=== PATIENT | female | born 1970 | race Hispanic/Latino ===

== ENCOUNTER → 2019-12-21 | Outpatient (CLI) | payer BC | END | disposition home or self-care (01) | LOC: RAH 08:47 | PROVIDERS: ATTEND Internal Medicine | DX: K76.0 Fatty (change of) liver, not elsewhere classified (principal); R16.0 Hepatomegaly, not elsewhere classified | CPT/HCPCS: 76700 ==

== ENCOUNTER 2023-03-24 09:13 | Observation (INO) | payer BC ==
[~2023-03-24] VITALS: Ht 160 cm; Wt 95.3 kg
[2023-03-24 09:34] LABS: BASOPHILS # (AUTO) 0.03 K/uL (0.00-0.20); BASOPHILS % (AUTO) 0.5 % (0.0-5.0); EOSINOPHILS # (AUTO) 0.13 K/uL (0.00-0.70); HEMATOCRIT 40.6 % (36-48); IMMATURE GRANULOCYTE ABSOLUTE 0.01 K/uL (0-1); LYMPHOCYTES % (AUTO) 31.1 % (21.0-51.0); MEAN CORPUSCULAR HEMOGLOBIN 31.7 pg (27.0-33.0); MEAN CORPUSCULAR HGB CONC 34.2 g/dL (32.0-36.0); MEAN CORPUSCULAR VOLUME 92.5 fL (79-99); MONOCYTES # (AUTO) 0.4 K/uL (0.1-1.0); MONOCYTES % (AUTO) 5.9 % (3.0-13.0); NEUTROPHILS # (AUTO) 3.9 K/uL (1.8-7.7); NEUTROPHILS % (AUTO) 60.3 % (40.0-77.0); PLATELET COUNT (AUTO) 270 K/uL (130-400); RED BLOOD CELL COUNT(AUTO) 4.39 MIL/uL (4.00-5.50); RED CELL DISTRIBUTION WIDTH 12.2 % (11.0-15.5); WHITE BLOOD COUNT (AUTO) 6.5 K/uL (4.8-10.8)
[2023-03-24 09:43] LABS: CREATININE 0.7 mg/dL (0.5-1.5); POTASSIUM 3.8 mmol/L (3.5-5.1)
[2023-03-24 09:47] LABS: ALBUMIN 3.7 g/dL (3.5-5.0); BILIRUBIN,TOTAL 0.5 mg/dL (0.2-1.0); MAGNESIUM 2.1 mg/dL (1.80-2.40); TOTAL PROTEIN, SERUM 7.4 g/dL (6.0-8.3)
[2023-03-24] MEDS: NITROGLYCERIN 0.4 MG SL TAB SL PRN ×3 (09:52→10:15)
[2023-03-24] MEDS ORDERED: ASPIRIN 325MG TAB PO ONE (10:00)
[2023-03-24] MEDS ORDERED: ENOXAPARIN SODIUM 100 MG/1 ML SQ ONE (11:00)
[2023-03-24] MEDS ORDERED: NITROGLYCERIN 1GM OINT 1 INCH/1GM TD ONE (11:00)
[2023-03-24] MEDS ORDERED: ACETAMINOPHEN 500 MG TABLET PO ONE (11:00)
[2023-03-24] MEDS ORDERED: TIRZ12.5 SQ (11:22)
[2023-03-24] MEDS: REGADENOSON 0.4 MG/5 ML PF SYG IVP SCH (12:00)
[2023-03-24] MEDS ORDERED: EMPA1TAB15 PO (12:01)
[2023-03-24 17:38] LABS: CREATINE KINASE, TOTAL 188 U/L (21-232); MYOGLOBIN 28 ng/mL (10-92)
[2023-03-24] MEDS: ENOXAPARIN SODIUM 100 MG/1 ML SQ SCH (21:28)
[2023-03-25] MEDS: CLOPIDOGREL 75MG TAB PO SCH (09:50)
[2023-03-25] MEDS: ASPIRIN 325MG TAB PO SCH (09:50)
[2023-03-25] MEDS: ENOXAPARIN SODIUM 100 MG/1 ML SQ SCH ×2 (09:50→20:16)
[2023-03-25] MEDS: REGADENOSON 0.4 MG/5 ML PF SYG IVP SCH (10:00)
[2023-03-25 16:00] VITALS: BP 147/69; PULSE 80; RESP 18
[2023-03-25] MEDS ORDERED: PHEN15CA61 PO (17:50)
[2023-03-25 20:00] VITALS: BP 142/66; PULSE 81; RESP 19
[2023-03-26] VITALS: BP 129/58; PULSE 94; RESP 18
[2023-03-26 04:00] VITALS: BP 122/57; PULSE 91; RESP 18
[2023-03-26 08:00] VITALS: BP 125/74; PULSE 89; RESP 19; O2SAT 98
[2023-03-26] MEDS: ASPIRIN 325MG TAB PO SCH (08:42)
[2023-03-26] MEDS: CLOPIDOGREL 75MG TAB PO SCH (08:42)
[2023-03-26] MEDS: ENOXAPARIN SODIUM 100 MG/1 ML SQ SCH (08:42)
[2023-03-26] MEDS ORDERED: PHENTERMINE HCL 15 MG PO SCH (09:00)
[2023-03-26] MEDS ORDERED: EMPAGLIFLOZIN PO SCH (09:00)
[2023-03-26] MEDS ORDERED: METFORMIN HCL PO SCH (09:00)
[2023-03-26 12:00] VITALS: BP 128/68; PULSE 87; RESP 18
[2023-04-01] MEDS ORDERED: TIRZEPATIDE SQ SCH (09:00)
== END 2023-03-26 14:20 | disposition home or self-care (01) ==
LOC: EDH 09:13 → EDHIP 11:07 → 4AH 03-25 16:00
PROVIDERS: ADMIT Internal Medicine; ATTEND Internal Medicine
DX: R07.89 Other chest pain (principal); I20.0 Unstable angina; I10 Essential (primary) hypertension; E11.9 Type 2 diabetes mellitus without complications; E78.5 Hyperlipidemia, unspecified; Z79.899 Other long term (current) drug therapy
CPT/HCPCS: 96372 ×4; 99285; 80050; 82550 ×3; 83735; 83874 ×3; 84484 ×4; 36415 ×2; 71045; 93005; 82948 ×4; 93017; 78452; G0378 ×48; J1650 ×5; J2785; A9500 ×2; 80053; 84443; 85025; 96374